=== PATIENT | male | born 1990 | race Caucasian/White ===

== ENCOUNTER → 2020-08-26 11:00 | Outpatient (CLI) | payer BC, SELFPAY ==
--- NOTE | 2020-08-26 | DI.RAD_ITS ---
EXAM: XR SHOULDER RT COMPLETE 2+V CLINICAL HISTORY: SHOUDLER JOINT PAIN RT M25.511, SUSPECTED RECURRENT SHOUDER DISLOCATION 2 TECHNIQUE: COMPARISON: No exams were available for comparison FINDINGS: Five views were obtained. No prior films available for comparison. The there is reportedly history of clinically apparent recurrent anterior glenohumeral dislocation. There is deformity of the anterior glenoid suspicious for a a bony Bankart lesion. No other bony abn ormality seen. No evidence of glenohumeral dislocation at this time. Acromioclavicular joint appear s well maintained. IMPRESSION: RADIATION DOSE DELIVERED: Total DLP
== END ==
PROVIDERS: Visit Provider Physician Assistant
DX: M25.511 Pain in right shoulder (principal); M25.811 Other specified joint disorders, right shoulder
CPT/HCPCS: 73030

== ENCOUNTER 2021-02-07 03:21 | Outpatient (CLI) | payer BC, SELFPAY ==
[2021-02-07 11:56] LABS: Source Nasal/Nares
[2021-02-07 18:52] LABS: COVID-19 PCR Negative (Negative)
== END 2021-02-07 03:22 | disposition home or self-care (01) ==
LOC: LBO 03:22
PROVIDERS: PCP Physician Assistant; Visit Provider Student in an Organized Health Care Education/Training Program
DX: Z20.822 Contact with and (suspected) exposure to COVID-19 (principal)
CPT/HCPCS: 87635

== ENCOUNTER 2021-02-09 06:12 | Day surgery (SDC) | payer OTHER, SELFPAY ==
[2021-02-09] VITALS (11 sets, daily range): BP systolic 89–112; BP diastolic 52–80; PULSE 56–97; RESP 14–18; TEMP 36.2–36.5; O2SAT 92–99; BMI 20.2
--- NOTE | 2021-02-09 06:43 | ANES.PREOP_ITS ---
General Info Date of Service Date Performed: 02/09/21 Height: 5 ft 10 in Weight: 63.9 kg Body Mass Index (BMI): 20.2 Surgical Procedure: Operation Date: 02/09/21 07:40 Proposed Procedures Side Surgeon p Shoulder Arthroscopy with extensive debridement, labral repair, Right Xander Kelly MD s Shoulder Bicep Tenodesis Right Xander Kelly MD Meds Allergies and Home Medications Allergies Allergy/AdvReac Type Severity Reaction Status Date / Time No Known Allergies Allergy Verified 02/09/21 06:29 Home Medication Medication Instructions Recorded Unknown [No Known Home Meds] 09/28/20 Current Visit Medications: Current Medications Generic Name Dose Route Start Last Admin Trade Name Freq PRN Reason Stop Dose Admin Ringer's Solution 1,000 mls @ 100 mls/hr 02/09/21 06:00 IV 03/10/21 23:59 INFUSION KIRBY Cefazolin Sodium/Dextrose 2 gm in 50 mls @ 100 mls/hr 02/09/21 06:00 Ancef Duplex IVPB 02/09/21 16:00 PREOP KIRBY IV Miscellaneous Supplies 1 each 02/09/21 06:00 Iv Access IV 03/10/21 23:59 DIRECTED KIRBY Sodium Chloride 0 ml 02/09/21 06:00 Normal Saline Flush 10 Ml Syr IV 03/10/21 23:59 PRN PRN Sodium Chloride 0 ml 02/09/21 06:00 Normal Saline 10 Ml Vial IJ 03/10/21 23:59 DIRECTED PRN Sterile Water 0 ml 02/09/21 06:00 Water,Injection,Sterile 10 Ml Vial IJ 03/10/21 23:59 DIRECTED PRN PFSH Active Problems Active Problems: Problem Status Onset Code Recurrent dislocation, 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 Vital Signs and Lab Results Vital Signs Most Recent Vital Signs in EMR: Most Recent Vital Signs Temp Pulse Resp BP Pulse Ox 36.5 C 71 18 109/72 99 02/09/21 06:22 02/09/21 06:22 02/09/21 06:22 02/09/21 06:22 02/09/21 06:22 Lab Results Blood Type / Crossmatch: No Data to Display Complete Blood Count: No Data to Display Complete Metabolic Panel: No Data to Display Liver Function Panel: No Data to Display Coagulation Panel: No Data to Display Cardiac Panel: No Data to Display Arterial Blood Gas: No Data to Display Venous Blood Gas: No Data to Display Pancreas Panel: No Data to Display Thyroid Panel: No Data to Display Infectious Disease: Coronavirus (COVID-19)(PCR) Negative (Negative) 02/07/21 11:16 02/07/21 Coronavirus 2019 Source Nasal/Nares 02/07/21 11:16 02/07/21 Blood Cultures: No Data to Display Toxicology Panel: No Data to Display Anesthesia Assessment and Plan Anesthesia History Personal History: No History of Anesthesia Complications and No History of General Anesthesia Family History: No Family History of Anesthesia Complications Exercise Tolerance Exercise Tolerance: Metabolic Equivalents>4 Pertinent Negatives Pertinent Negatives: No Symptoms of GERD, No Major Cardiovascular Symptoms or Complaints, No Major Pulmonary Symptoms or Complaints and No History of CVA/TIA Cardiac & Pulmonary Exam Cardiac Exam: Normal S1/S2 Heart Sounds Pulmonary Exam: Clear Bilateral Breath Sounds Airway Exam Known Difficult Airway: No Mallampati Class: 2 Mouth Opening: Normal (> 3cm) Thyromental Distance: Greater than 3 cm Neck Range of Motion: Full ROM Neck Circumference: Normal Teeth Condition: Normal Dentition ASA Classification ASA Score: ASA 2 Emergency Case?: No NPO Status NPO Status: NPO Clears >2 hours, Solids >8 hours Anesthesia Plan Resuscitation Status: Full Code Anesthesia Technique: General Anesthesia Airway Planned: Endotracheal Tube Pain Management: Surgeon and patient request nerve block Monitors Used: Standard Monitors
[2021-02-09] MEDS: Lactated Ringers 1,000 ML 100 ML IV ×2 (06:45→12:18)
--- NOTE | 2021-02-09 09:07 | W.ANESNERVE ---
Nerve Block Single Injection Procedure Date and Time Date Performed: 02/09/21 Procedure Start: 07:16 Location Where Procedure Performed Procedure Location: PACU Reason Performed: Postoperative Analgesia Requesting Provider: Xander Kelly Timeout Performed Timeout Performed: Yes Monitoring Used ECG, Blood Pressure and SpO2 Sterility Sterility: Hand Hygiene, Surgical Cap, Surgical Mask, Sterile Gloves and Chlorhexidine Sedation Given During Procedure Sedation Given (Indicate Dose Given): Versed IV Dose:: 2 mg at 0715, 2 mg at 0720, 4 mg total Patient Mental Status Patient Mental Status: Sedate with meaningful communication Nerve Block 1st Nerve Block: Laterality: Right Block Type: Interscalene Needle / Catheter Used: 100mm SonoPlex II Local Anesthetic Bolus (Indicate Dose Given): Lidocaine used for local infiltration of skin, Injected in 3-5ml increments after negative blood aspiration, Bupivacaine 0.25% Dose:: 10 ml and Exparel Dose:: 10 ml Additives (Indicate Dose Given): None Ultrasound: Sterile probe cover and gel used Ultrasound Image Saved?: Yes Nerve Stimulator: Not Used Paresthesia: None Procedure Tolerated: No Complications and Patient tolerated well Procedure Outcome: Successful Performed By: Isidro Solorio Supervised By: Yanci Dia
--- NOTE | 2021-02-09 12:00 | ROE_ITS ---
Date of service: 02/09/21 Time of Service: 08:00 Operative Note Operative Note DATE OF PROCEDURE: 02/09/21 PRE-OP DIAGNOSIS: Right shoulder: 1. 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 Recurrent instability with chronic bony bankart lesion and anterior + posterior labral tearing 2. Hill Sachs lesion with partial articular sided infraspinatus rotator cuff tearing 3. PASTA lesion 4. Bursitis PROCEDURE: Right: 1. Anterior bony Bankart and labral repairs, CPT #86182: This involved mobilizing chronic bony Bankart lesion, preparing glenoid for healing, and repairing bone capsule and labral structures with suture anchors anteriorly. 2. Posterior labral repair and capsular plication, CPT #72342: This involved suturing and repairing posterior capsule and labral tissue with suture and anchor posteriorly. 3. Remplissage, CPT# 79929. This involved repair of the articular sided infraspinatus tear using anchors and sutures to reattach the rotator cuff to the humeral head, filling in the Hill-Sachs lesion. 4. Extensive debridement, CPT# 40455. This involved using arthroscopic hand and power instruments to mobilize chronic bony Bankart malunion on the glenoid and scapular neck, debriding anterior, anterior-inferior, and posterior labral nonviable tissue and synovitis. Debriding partial articular sided supraspinatus rotator cuff tear. Debriding scar tissue from preparing Hill-Sachs lesion hu meral head bone for healing. Smoothing and minimal removal of cartilage fraying about anteroinferior glenoid. 5. Subacromial decompression, CPT# 70227. This involved using arthroscopic power instruments and a radiofrequency wand to complete a bursectomy. The academic support assistant was medically required in order to help assist in techniques above, which require positioning the arm, holding the arthroscope, and manipulating multiple instruments and sutures at the same time. This cannot be done without the help of an experienced academic support assistant. SURGEON: Xander Kelly HOSPITAL CLINIC ASSISTANT: Oscar Hassan ANESTHESIA TYPE: General LMA/ETT and Primary Nerve Block Refer to Anesthesia Record ESTIMATED BLOOD LOSS: 20 PATHOLOGY: none sent COMPLICATIONS: None Patient was transported to: PACU Patient's condition: stable Implants: Arthrex: 2.9 mm PushLock anchors x6 (5 anterior and 1 posterior), 3.9 mm knotless corkscrew x2 (Remplissage) Indications: The patient was diagnosed with the above conditions and appropriately indicated for surgical intervention. Please see complete medical record for details. Findings: Exam under anesthesia: Full range of motion. Significant anterior and posterior instability without forcing dislocation. Moderate sulcus sign that corrected with external rotation. Glenohumeral joint: Significant anterior labral tearing with diminutive frayed tissue. Disruption of M GH L. Intact subscapularis. Anterior inferior significant bone loss with chronic bony Bankart malunion medial on scapular neck. Intact biceps tendon and superior labrum with biceps tendon anchor. Separate posterior slightly inferior labral tear. Mild to moderate grade 2?3 chondromalacia anteriorly and anteroinferiorly about the zone of injury. Mild partial articular sided supraspinatus rotator cuff tearing with undersurface fraying a few millimeters. Moderately large although only moderately deep posterior Hill-Sachs lesion beneath infraspinatus partial articular sided rotator cuff tearing that demonstrated engagement in external rotation. Subacromial space: Surprisingly significant bursitis. Intact rotator cuff. No significant subacromial bone spur. Procedure Description: In the operating room, general anesthesia was induced. Bilateral shoulders were examined. The patient was positioned in the beachchair position. All bony prominences were well-padded. Preoperative antibiotics were administered. The shoulder was prepped and draped in the usual sterile fashion. The correct patient, procedure, and side of the procedure were all verified prior to incision. Starting through the posterior portal a standard complete diagnostic arthroscopy was performed of the glenohumeral joint including inspection of the long head of the biceps, anterior and superior labrum, subscapularis tendon, supraspinatus and infraspinatus tendons, and axillary recess. The glenoid and humeral head cartilage as well as the posterior labrum were inspected from an anterior viewing portal. Significant findings and interventions noted above. A high anterior portal was established and rigid cannula inserted. Provisional inspection evaluation of the anterior labral tearing as well as chronic bony Ba nkart was done before establishing a low anterior portal localized with spinal needle through the subscapularis for optimal trajectory for bony Bankart and anterior inferior repair. Portal was carefully and bluntly dilated an additional rigid cannula inserted. Various liberator's and elevators were used through both portals to carefully mobilize this chronic bony Bankart lesion with resulting malunion and bone loss. Care was taken to alternate viewing from posterior and anterior. Majority of the bone was able to be freed up centrally from the scapular neck while preserving more peripheral capsular labral attachments. Care was taken to preserve as much bone as possible on both sides of the lesion. The bone and capsular tissue were then manipulated into a much more appropriate position. The bone and labral tissue was abnormal given chronicity and recurrent dislocations, but did mobilize reasonably with incorporating capsular and AIG HL and MGH L tissue. The glenoid margin anteroi nferiorly and rim superiorly was prepared for optimal tissue healing. Working through the anteroinferior portal, a suture passer was used to carefully incorporate inferior capsular and labral tissue at inferior margin of the bony Bankart lesion at probably the 5:30 position, which was secured with a suture tape in cinch mode fashion. The eccentric offset drill guide was used to drill for anchor at this lowest position of the lesion anteriorly. The suture tape was passed through the push lock anchor eyelet and the push lock anchor positioned at the prepared site, appropriate tension placed on repair tissue, and the anchor secured down to bone. Care was taken to ensure no skiving of the glenoid cartilage and that the anchor was flush or slightly countersunk. There is excellent buddhism of this margin of the lesion as well as reducing redundant anterior-inferior capsular tissue. Working from inferior to superior additional suture tapes were passed in cinch mode with the next 2 anchors incorporating the bony Bankart lesion as well as AIGH L and capsular tissue at about the 5 and then 4:00 positions with good apposition buddhism of bone and soft tissue. A fourth anchor was then placed around the superior margin of the bony lesion around 3:00 incorporating some MGHL and this margin of labral tissue in the repair completing bony Bankart repair with capsular labral tissue. Lastly, a 5th anchor was placed repairing diminutive but displaced anterior labral tissue at around 2:30. Attention was then turned to the posterior labral tear, which was mobile and separate from the glenoid especially centrally posterior and somewhat inferiorly. The subscapularis cannula was withdrawn. The posterior portal was then redirected to allow for better repair and suture anchor placement posteriorly in the region cannula inserted. The suture lasso was used to secure the posterior labral tear and adjacent capsular tissue with a suture tape doubled over in a luggage tag fashion. The drill through the drill guide used to prepare for the anchor, which was noted with these repair suture ends and secured down to the posterior glenoid rim completing the posterior labral repair and capsular plication. The posterior humeral head Hill-Sachs lesion too adjacent to the posterior portal to allow for usual viewing and repair so the posterior cannula withdrawn and viewing changed to anterior. The 17-gauge needle was then used to localize placement through the infraspinatus at the superior and inferior aspects at the medial margin of the lesion. Nitinol wire inserted and stab incisions made followed by insertion of the dilator and then spear cannula and guide for the corkscrew punch. Starting with the more inferior position, the guide and punch were used to prepare for placement of a knotless corkscrew anchor which was secured down to bone. This was repeated in the more superior position with additional anchor. Starting through the posterior portal, the arthroscope was directed into the subacromial space. There was abundant bursitis. A lateral 50 yard line lateral portal was created. A combination of power instruments and a radiofrequency ablator were used to debride bursitis anteriorly, posteriorly, and laterally taking care to localize and protect the Remplissage repair sutures. The coracoacromial ligament was preserved. The bursectomy was completed viewing laterally and working from posteriorly and the rotator cuff inspected with findings noted above although visualization remained poor and laterally and posteriorly given amount of hemorrhagic bursitis. The rigid cannula was then moved to the lateral portal. The repair sutures were delivered into a more accessible part of the subacromial space using the tape retriever and in a careful deliberate manner the repair and loop suture from each anchor withdrawn out laterally with the posterior sutures marked blue. The knotless mechanisms were then engaged with the anterior repair suture going into the link loop from the posterior suture and the posterior link free and provisionally tightened in line with the anchor. This was repeated with the posterior repair suture going through the anterior anchor using the link. Arthroscope was placed back in the anterior glenohumeral viewing location to watch as these repair sutures were final tightened confirming reduction of infraspinatus tissue filling in the Hill-Sachs lesion nicely. Range of motion was inspected, in particular external rotation, which was not limited or significantly distressing repairs. The humeral head demonstrated significantly improved anterior and posterior stability especially with restored anterior inferior glenoid bone and combination of capsule and ligament structures. The shoulder was drained of arthroscopic fluid. All portal sites were copiously irrigated. The incisions were closed using 3-0 Monocryl in a buried fashion and then covered with Mastisol, Steri-Strips, Xeroform, dry gauze, and ABDs. The dressings were covered and secured with Medipore tape. The operative extremity was placed into a sling for immobilization. The patient awoke from anesthesia without complication and was transferred to the recovery room in a stable condition.
--- NOTE | 2021-02-09 13:43 | W.ANESPOSTOP ---
Postoperative Evaluation Date, Time and Location Date Performed: 02/09/21 Time Performed: 13:27 Patient Location: PACU Vital Signs Most Recent Imported Vital Signs: Most Recent Vital Signs Temp Pulse Resp BP Pulse Ox 36.4 C L 60 16 106/77 96 02/09/21 13:20 02/09/21 13:20 02/09/21 13:20 02/09/21 13:20 02/09/21 13:20 Pain Score Most Recent Pain Score: Most Recent Pain Score Pain Level 0 02/09/21 13:20 Assessment Mental Status: Awake (Alert & Oriented to Patient Baseline) Airway and Respiratory Function: Patent airway with normal (patient baseline) respiratory exam Cardiovascular Function: Hemodynamically Stable Hydration Status: Adequately Hydrated Nausea & Vomiting: No Nausea or Vomiting Pain: Pt. Denies Any Pain Peripheral Nerve Block: Regional nerve block not resolved at time of post operative discharge
--- NOTE | 2021-02-09 14:22 | PDOC.DSDIS_ITS ---
Discharge Plan Disposition Patient Disposition: HOME Condition: Stable Discharge Details Reason For Visit: Right shoulder surgery Attending Provider: Xander Kelly Primary Care Provider: Antonio Mojica Home Meds and New Rx's Prescriptions: New naproxen 250 mg tablet 250 - 500 mg PO BID PRN (Reason: Moderate pain or swelling) Qty: 40 RF: 0 aspirin 81 mg tablet,delayed release (DR/EC) 81 mg PO DAILY 14 Days Qty: 14 RF: 0 oxycodone 5 mg tablet 5 - 10 mg PO Q4H PRN (Reason: moderate to severe pain) Qty: 18 RF: 0 Discharge Instructions Additional Instructions: Surgery: Shoulder arthroscopy with extensive debridement, anterior and posterior labral repairs, Remplissage, and subacromial decompression. Activity: For 6 weeks, you should keep your arm at your side in a neutral position at all times except for physical therapy. Do not try to lift or raise your arm using your own muscles. You should use the sling whenever you are out of the house. You may have to adjust the abduction pillow or remove it for comfort. At home it is best to remove the sling and rest the arm on a pillow at your side or support the operative side with your other hand. You may allow the arm to dangle at your side. A physical therapy prescription will be sent electronically to begin in about 3 weeks. Range of motion protocol: 0-3 weeks: 0 degrees external rotation & max 90 degrees forward elevation 3-6 weeks: max 30 degrees ER & 120 degrees FE After 6 weeks, gradually advance to FROM Prescriptions: Aspirin 81 mg take 1 daily to prevent a blood clot for 2 weeks Naproxen 250 mg take 1-2 every 12 hours with a meal as needed for moderate pain Oxycodone 5 mg take 1-2 every 4-6 hours as needed for severe pain You may use [id number] Tylenol (acetaminophen) as needed for mild pain. These pain medications may be taken all at once or in different combinations as needed. Also, recommend Colace (docusate) as a stool softener as surgery and pain medicine cause constipation. Dressings: Remove shoulder bandage after 3 days. Leave the sticky Steri-Strips in place until they fall off or remove them after you shower. Cover the incisions with Band-Aids or leave them open to air. You may shower after 5 days. Follow-up: 10-[address] Kelly You may take off the leg compression stockings this evening at home. You may also leave them on a few days longer if you have a history of leg swelling or edema. Let us know right away if you develop any redness, drainage, fevers, chest pain, or trouble breathing. Do not drink alcohol or drive for at least 24 hours after anesthesia. Please call the office during business hours with any questions or concerns. Referrals: Xander Kelly MD [ [facility] STAFF PHYSICIAN] - Discharge Orders Discharge Orders: Discharge Order (Routine); Ordered 02/09/21 Ordered By: Xander Kelly DS: Diagnosis Discharge Diagnosis (1) Recurrent dislocation, right shoulder: Status: Acute (2) Traumatic tear of right rotator cuff: Status: Acute (3) Bursitis of right shoulder: Status: Acute
[2021-02-09] MEDS: Normal Saline Flush 10 ML SYR IV (14:30)
== END 2021-02-09 15:20 | disposition home or self-care (01) ==
PROVIDERS: PCP Physician Assistant; Visit Provider Student in an Organized Health Care Education/Training Program
PROC: (CPT 29805; principal; 2021-02-09 07:30)
DX: M24.411 Recurrent dislocation, right shoulder (principal); M75.51 Bursitis of right shoulder; M24.111 Other articular cartilage disorders, right shoulder; M75.101 Unspecified rotator cuff tear or rupture of right shoulder, not specified as traumatic
CPT/HCPCS: 29806; 29827; 29823; 29826; J0690; J1100; J1885; J2001; J2250; J2370; J2405; J3010